=== PATIENT | female | born 1995 | race Caucasian/White ===

== ENCOUNTER 2020-11-11 09:17 | Emergency (ER) | payer OTHER ==
[~2020-11-11] VITALS: Ht 165.1 cm; Wt 56.7 kg
[~2020-11-11 09:17] MED LIST: CEPHALEXIN500 MG PO; PYRIDIUM DS200 MG PO
[2020-11-11] MEDS ORDERED: PRENATABS FA T1 EACH (09:29)
== END 2020-11-11 16:50 ==
LOC: ER 09:17
DX: O26.851 Spotting complicating pregnancy, first trimester (principal); O26.891 Other specified pregnancy related conditions, first trimester; O36.80X1 Pregnancy with inconclusive fetal viability, fetus 1; Z36.89 Encounter for other specified antenatal screening; Z34.01 Encounter for supervision of normal first pregnancy, first trimester

== ENCOUNTER 2021-02-19 09:45 | Outpatient (CLI) | payer OTHER ==
[~2021-02-19 09:45] MED LIST changes: +PRENATABS FA T1 EACH
== END 2021-02-19 10:54 | disposition home or self-care (01) ==
LOC: PRENATAL 09:45
PROVIDERS: ATTEND Obstetrics & Gynecology Maternal & Fetal Medicine
DX: O35.0XX1 Maternal care for (suspected) central nervous system malformation in fetus, fetus 1 (principal); O35.3XX1 Maternal care for (suspected) damage to fetus from viral disease in mother, fetus 1; O98.512 Other viral diseases complicating pregnancy, second trimester; Z36.89 Encounter for other specified antenatal screening; Z3A.23 23 weeks gestation of pregnancy

== ENCOUNTER 2021-03-28 01:39 | Outpatient (CLI) | payer OTHER | END 2021-03-28 01:59 | disposition home or self-care (01) | LOC: NST 01:39 | PROVIDERS: ATTEND Obstetrics & Gynecology | DX: Z34.83 Encounter for supervision of other normal pregnancy, third trimester (principal) ==

== ENCOUNTER 2021-05-27 12:45 | Inpatient (IN) | payer OTHER ==
[~2021-05-27] VITALS: Ht 165.1 cm; Wt 3.2 kg
[2021-05-31] MEDS ORDERED: VITAMIN C100 MG (15:38)
== END 2021-06-02 16:24 | disposition home or self-care (01) | DRG 788 ==
LOC: LDR 05-31 14:05 → OB/GYN 05-31 19:14 → SURH 06-07 12:45
PROVIDERS: ADMIT Obstetrics & Gynecology; ATTEND Obstetrics & Gynecology
PROC: 4A1HXCZ Monitoring of Products of Conception, Cardiac Rate, External Approach (ICD-10-PCS; 2021-05-31)
PROC: 10D00Z1 Extraction of Products of Conception, Low, Open Approach (ICD-10-PCS; principal; 2021-05-31 15:00)
DX: O32.2XX0 Maternal care for transverse and oblique lie, not applicable or unspecified (principal); O99.820 Streptococcus B carrier state complicating pregnancy; Z3A.39 39 weeks gestation of pregnancy; Z37.0 Single live birth; Z20.822 Contact with and (suspected) exposure to COVID-19